=== PATIENT | male | born 1975 | race Caucasian/White ===

== ENCOUNTER 2017-01-09 16:34 | Observation (INO) | payer BC ==
[2017-01-09] MEDS ORDERED: Aspirin 81 MG Tab.Chew PO ONE (16:56)
--- NOTE | 2017-01-09 17:09 | EDM.PDOC ---
<Ranulfo Aquino Z - Last Filed: 01/09/17 18:33> ED HPI GENERAL MEDICAL PROBLEM - General Chief Complaint: Chest Pain Stated Complaint: CHEST PAIN Time Seen by Provider: 01/09/17 16:44 Source of Information: Reports: Patient History Limitations: Reports: No Limitations - History of Present Illness INITIAL COMMENTS - FREE TEXT/NARRATIVE: HISTORY AND PHYSICAL: History of present illness: Nicolas is a 41-year-old male with a past medical history of hypertension, he does not have any past ischemic cardiac history, elevated cholesterol history, diabetes history. He does not have any family history of myocardial infarction or blocked arteries. He is a half pack-a-day smoker. Patient came in today to his primary care physician's office for assessment of chest pain. Patient states that his chest pain started between 5 days ago. He states it has not changed in nature, he has a very strenuous job which is not causing his pain to worsen. Patient denies pain is reproducible, or worse with exertion. Patient does not have any nausea, vomiting, diaphoresis, heart palpitations. Review of systems: As per history of present illness and below otherwise all systems reviewed and negative. Past medical history: As per history of present illness and as reviewed below otherwise noncontributory. Surgical history: As per history of present illness and as reviewed below otherwise noncontributory. Social history: No reported history of drug or alcohol abuse. Family history: As per history of present illness and as reviewed below otherwise noncontributory. Physical exam: HEENT: Atraumatic, normocephalic, pupils reactive, negative for conjunctival pallor or scleral icterus, mucous membranes moist, throat clear, neck supple, nontender, trachea midline. Lungs: Clear to auscultation, breath sounds equal bilaterally, chest nontender. Heart: S1S2, regular, negative for clicks, rubs, or JVD. Abdomen: Soft, nondistended, nontender. Negative for masses or hepatosplenomegaly. Negative for costovertebral tenderness. Pelvis: Stable nontender. Genitourinary: Deferred. Rectal: Deferred. Extremities: Atraumatic, negative for cords or calf pain. Neurovascular unremarkable. Neuro: Awake, alert, oriented. Cranial nerves II through XII unremarkable. Motor and sensory unremarkable throughout. Exam nonfocal. Diagnostics: ECG, chest x-ray, CBC, troponin, D-Dimer [employer]: Aspirin 324 mg 1 time dose Impression: 41-year-old male with past medical history of hypertension presenting with 5 day history of chest pain with non-specific T wave changes on initial EKG. Patient has a HEART score of 2, normal initial troponin, 0C within normal limits, his repeat EKG in the emergency department showed a NSR of 69, normal [place], no STEMI Plan: Due to the fact that the patient has had chest pain for the past 5 days, nonspecific T-wave changes on initial EKG done at PCPs office, and consultation with cardiology the decision was made to admit the patient under observation with telemetry for further workup and assessment. Definitive disposition and diagnosis as appropriate pending reevaluation and review of above. Midsternal Chest Pain Pain Score (Numeric/FACES): 4 - Related Data Allergies Allergy/AdvReac Type Severity Reaction Status Date / Time No Known Allergies Allergy Verified 01/09/17 16:43 Home Meds: Home Meds Aspirin [[place] Aspirin] 81 mg PO DAILY 01/09/17 [History] Lisinopril 10 mg PO DAILY 01/09/17 [History] Past Medical History HEENT History: Reports: None Cardiovascular History: Reports: Hypertension Respiratory History: Reports: None Gastrointestinal History: Reports: None Genitourinary History: Reports: None Musculoskeletal History: Reports: None Neurological History: Reports: None Psychiatric History: Reports: None Endocrine/Metabolic History: Reports: None Hematologic History: Reports: None Immunologic History: Reports: None Oncologic (Cancer) History: Reports: None Dermatologic History: Reports: None - Infectious Disease History Infectious Disease History: Reports: None - Past Surgical History Head Surgeries/Procedures: Reports: None HEENT Surgical History: Reports: None Cardiovascular Surgical History: Reports: None Respiratory Surgical History: Reports: None GI Surgical History: Reports: None Male Surgical History: Reports: None Endocrine Surgical History: Reports: None Musculoskeletal Surgical History: Reports: None Dermatological Surgical History: Reports: None Social & Family History - Family History Family Medical History: Noncontributory - Tobacco Use Smoking Status *Q: Current Every Day Smoker Years of Tobacco use: 10 Packs/Tins Daily: 0.5 - Caffeine Use Caffeine Use: Reports: None - Recreational Drug Use Recreational Drug Use: No ED ROS GENERAL - Review of Systems Review Of Systems: ROS reveals no pertinent complaints other than HPI. ED EXAM, GENERAL - Physical Exam Exam: See Below (Refer to history of presenting illness) Course - Vital Signs Last Recorded V/S: Last Vital Signs Temp 36.6 C 01/09/17 16:39 Pulse 66 01/09/17 17:45 Resp 16 01/09/17 17:45 BP 133/89 01/09/17 17:45 Pulse Ox 97 01/09/17 17:45 - Orders/Labs/Meds Orders: Active Orders 24 hr Category Date Time Status Patient Status [ADT] Routine ADT 01/09/17 18:23 Active Cardiac Monitoring [RC] CONTINUOUS Care 01/09/17 18:25 Active EKG 12 Lead [EKG Documentation Completion] [RC] STAT Care 01/09/17 17:24 Active Height and Weight [RC] UPON Care 01/09/17 18:23 Active Intake and Output [RC] QSHIFT Care 01/09/17 18:25 Active Notify Provider Consults [RC] ASDIRECTED Care 01/09/17 18:31 Active Oxygen Therapy [RC] PRN Care 01/09/17 18:23 Active Pulse Oximetry [RC] PRN Care 01/09/17 18:25 Active Up With Assistance [RC] ASDIRECTED Care 01/09/17 18:23 Active VTE/DVT Education [RC] PER UNIT ROUTINE Care 01/09/17 18:23 Active Vital Signs [RC] Q4H Care 01/09/17 18:23 Active Consult to Physician [CONS] Routine Cons 01/09/17 18:23 Active Regular Diet [DIET] Diet 01/09/17 Breakfast Active Chest 1V Frontal [CR] Stat Exams 01/09/17 16:38 Taken Enoxaparin [Lovenox] Med 01/09/17 18:30 Active 40 mg SUBCUT DAILY Nicotine [Habitrol] Med 01/09/17 18:30 Active 7 mg TRDERM DAILY Sodium Chloride 0.9% [Saline Flush] Med 01/09/17 18:23 Active 10 ml FLUSH ASDIRECTED PRN Sodium Chloride 0.9% [Saline Flush] Med 01/09/17 18:23 Active 2.5 ml FLUSH ASDIRECTED PRN Peripheral IV Insertion Adult [OM.PC] Routine Oth 01/09/17 18:23 Ordered Saline Lock Insert [OM.PC] Routine Oth 01/09/17 18:23 Ordered Resuscitation Status Routine Resus Stat 01/09/17 18:23 Ordered Medication Orders Enoxaparin Sodium (Lovenox) 40 mg SUBCUT DAILY [place] Nicotine (Habitrol) 7 mg TRDERM DAILY [place] Sodium Chloride (Saline Flush) 10 ml FLUSH ASDIRECTED PRN PRN Reason: Keep Vein Open Sodium Chloride (Saline Flush) 2.5 ml FLUSH ASDIRECTED PRN PRN Reason: Keep Vein Open Labs: Laboratory Tests 01/09/17 01/09/17 01/09/17 Range/Units 16:48 16:48 16:48 WBC 8.26 (4.0-11.0) K/uL RBC 4.38 L (4.50-5.90) M/uL Hgb 13.9 (13.0-17.0) g/dL Hct 41.4 (38.0-50.0) % MCV 94.5 (80.0-98.0) fL MCH 31.7 (27.0-32.0) pg MCHC 33.6 (31.0-37.0) g/dL RDW Std Deviation 44.5 (28.0-62.0) fl RDW Coeff of Kye 13 (11.0-15.0) % Plt Count 223 (150-400) K/uL MPV 9.40 (7.40-12.00) fL Neut % (Auto) 60.6 (48.0-80.0) % Lymph % (Auto) 29.5 (16.0-40.0) % Cole % (Auto) 8.6 (0.0-15.0) % Eos % (Auto) 1.1 (0.0-7.0) % Baso % (Auto) 0.2 (0.0-1.5) % Neut # (Auto) 5.0 (1.4-5.7) K/uL Lymph # (Auto) 2.4 (0.6-2.4) K/uL Cole # (Auto) 0.7 (0.0-0.8) K/uL Eos # (Auto) 0.1 (0.0-0.7) K/uL Baso # (Auto) 0.0 (0.0-0.1) K/uL Nucleated RBC % 0.0 /100WBC Nucleated RBCs # 0 K/uL D-Dimer, Quantitative (0.0-0.52) mg/LFEU Sodium 138 (136-146) mmol/L Potassium 4.1 (3.5-5.1) mmol/L Chloride 107 (98-110) mmol/L Carbon Dioxide 22 (21-31) mmol/L BUN 15 (6.0-23.0) mg/dL Creatinine 1.0 (0.6-1.5) mg/dL Est Cr Clr Drug Dosing 107.10 mL/min Estimated GFR (MDRD) > 60.0 ml/min Glucose 96 (60-110) mg/dL Calcium 9.5 (8.8-10.8) mg/dL Total Bilirubin 0.8 (0.1-1.5) mg/dL AST 24 (5-40) IU/L ALT 23 (8-54) IU/L Alkaline Phosphatase 72 (40-150) Troponin I < 0.10 (0.0-0.29) NG/ML Total Protein 7.2 (6.0-8.0) g/dL Albumin 4.3 (3.5-5.0) g/dL Globulin 2.9 (2.0-3.5) g/dL Albumin/Globulin Ratio 1.5 (1.3-2.8) 01/09/17 Range/Units 16:48 WBC (4.0-11.0) K/uL RBC (4.50-5.90) M/uL Hgb (13.0-17.0) g/dL Hct (38.0-50.0) % MCV (80.0-98.0) fL MCH (27.0-32.0) pg MCHC (31.0-37.0) g/dL RDW Std Deviation (28.0-62.0) fl RDW Coeff of Kye (11.0-15.0) % Plt Count (150-400) K/uL MPV (7.40-12.00) fL Neut % (Auto) (48.0-80.0) % Lymph % (Auto) (16.0-40.0) % Cole % (Auto) (0.0-15.0) % Eos % (Auto) (0.0-7.0) % Baso % (Auto) (0.0-1.5) % Neut # (Auto) (1.4-5.7) K/uL Lymph # (Auto) (0.6-2.4) K/uL Cole # (Auto) (0.0-0.8) K/uL Eos # (Auto) (0.0-0.7) K/uL Baso # (Auto) (0.0-0.1) K/uL Nucleated RBC % /100WBC Nucleated RBCs # K/uL D-Dimer, Quantitative < 0.19 (0.0-0.52) mg/LFEU Sodium (136-146) mmol/L Potassium (3.5-5.1) mmol/L Chloride (98-110) mmol/L Carbon Dioxide (21-31) mmol/L BUN (6.0-23.0) mg/dL Creatinine (0.6-1.5) mg/dL Est Cr Clr Drug Dosing mL/min Estimated GFR (MDRD) ml/min Glucose (60-110) mg/dL Calcium (8.8-10.8) mg/dL Total Bilirubin (0.1-1.5) mg/dL AST (5-40) IU/L ALT (8-54) IU/L Alkaline Phosphatase (40-150) Troponin I (0.0-0.29) NG/ML Total Protein (6.0-8.0) g/dL Albumin (3.5-5.0) g/dL Globulin (2.0-3.5) g/dL Albumin/Globulin Ratio (1.3-2.8) Meds: Medications Generic Name Dose Route Start Last Admin Trade Name Freq PRN Reason Stop Dose Admin Enoxaparin Sodium 40 mg 01/09/17 18:30 Lovenox SUBCUT DAILY [place] Nicotine 7 mg 01/09/17 18:30 Habitrol TRDERM DAILY [place] Sodium Chloride 10 ml 01/09/17 18:23 Saline Flush FLUSH ASDIRECTED PRN Keep Vein Open Sodium Chloride 2.5 ml 01/09/17 18:23 Saline Flush FLUSH ASDIRECTED PRN Keep Vein Open Discontinued Medications Generic Name Dose Route Start Last Admin Trade Name Freq PRN Reason Stop Dose Admin Aspirin 324 mg 01/09/17 16:56 01/09/17 17:39 Aspirin PO 01/09/17 16:57 324 mg ONETIME ONE Administration Departure - Departure Time of Disposition: 18:30 Disposition: Refer to Observation Condition: Good Clinical Impression: Chest pain <Richy Huffman - Last Filed: 01/09/17 18:47> ED HPI GENERAL MEDICAL PROBLEM - History of Present Illness INITIAL COMMENTS - FREE TEXT/NARRATIVE: FELIBERTO Tse attending no by Dr. Richy Huffman 41-year-old male with a history of tobacco and hypertension no prior cardiac workup now with nonspecific chest pain. T-wave abnormality on EKG initially resolved on repeat study. Case discussed with beef selector Dr. Almonte is aware history and findings and agrees with observation admission to hospitalist service and he will provide consultation. She is stable on multiple reevaluation. Aspirin given EKG with normal sinus rhythm at 69 normal axis no STEMI interpreted by me Chest x-ray with no acute disease interpreted by me
[2017-01-09 17:13] LABS: CHLORIDE,CL 107 mmol/L (98-110); SODIUM,NA 138 mmol/L (136-146)
[2017-01-09] MEDS ORDERED: Sodium Chloride 0.9% 2.5 ML Syringe FLUSH PRN (18:23)
[2017-01-09] MEDS ORDERED: Sodium Chloride 0.9% 10 ML Syringe FLUSH PRN (18:23)
[2017-01-09] MEDS ORDERED: Nicotine 7 MG/24 Hr Patch TRDERM SCH (18:30)
[2017-01-09] MEDS: Enoxaparin 40 MG/0.4 ML Syringe SUBCUT SCH (18:46)
[2017-01-09] MEDS: Lisinopril 10 MG Tab PO SCH (21:58)
[2017-01-10] MEDS ORDERED: Morphine 2 MG/ML Syringe IVPUSH PRN (03:06)
[2017-01-10] MEDS ORDERED: Ondansetron 4 MG/2 ML SDV IVPUSH PRN (03:06)
--- NOTE | 2017-01-10 08:26 | PCM.HP ---
H&P History of Present Illness - General Date of Service: 01/10/17 Admit Problem/Dx: Chest pain Source of Information: Patient History Limitations: Reports: No Limitations - History of Present Illness Initial Comments - Free Text/Narative: This 41 year old male with pmh of smoker and HTN presented initially to the clinic with complaints of 5 days of dull chest pain and L shoulder pain. He reports it started abruptly 5 or so days ago and has just stayed there. He became worried so he wanted to be evaluated. He denies SOB or diaphoresis with this pain. Nothing has really helped it or made it worse. He denies palpitations. he works on a work over [employer], so his job is very physically demanding. Denies trauma to shoulder or chest that he can remember. Denies heartburn or GERD like symptoms. He denies cough or sinus congestion. He does smoke 1 ppd. He denies the pain is reproducible with movement of shoulder. He is feeling better this morning. He did mention he recently went through a rough breakup and has felt this pain since around that time frame. dnie sfeeling anxious, but is emotionally upset regarding this breakup. he has no known family history of CAD and no DM for personal history or family. In the ED labwork negative. Troponin negative. 2nd EKG SR with no ST segment changes. CXR negative for acute cardiopulmonary disease. He was given ASA and Lisinopril. He was admitted with chest pain R/O ACS. PCP Dr. Aquino. Midsternal Chest Pain Pain Score (Numeric/FACES): 4 - Related Data Allergies/Adverse Reactions: Allergies Allergy/AdvReac Type Severity Reaction Status Date / Time No Known Allergies Allergy Verified 01/09/17 16:43 Home Medications: Home Meds Aspirin [[place] Aspirin] 81 mg PO DAILY 01/09/17 [History] Lisinopril 10 mg PO DAILY 01/09/17 [History] Past Medical History HEENT History: Reports: None Cardiovascular History: Reports: Hypertension. Denies: Blood Clots/VTE/DVT, CAD , NM, Stents Respiratory History: Reports: None. Denies: COPD, PE Gastrointestinal History: Reports: None. Denies: GERD Genitourinary History: Reports: None. Denies: Chronic Renal Insuffiency Musculoskeletal History: Reports: None Neurological History: Reports: None Psychiatric History: Reports: None Endocrine/Metabolic History: Reports: None. Denies: Diabetes, Type II, Hypothyroidism Hematologic History: Reports: None Immunologic History: Reports: None Oncologic (Cancer) History: Reports: None Dermatologic History: Reports: None - Infectious Disease History Infectious Disease History: Reports: None - Past Surgical History Head Surgeries/Procedures: Reports: None HEENT Surgical History: Reports: None Cardiovascular Surgical History: Reports: None Respiratory Surgical History: Reports: None GI Surgical History: Reports: None Male Surgical History: Reports: None Endocrine Surgical History: Reports: None Musculoskeletal Surgical History: Reports: None Dermatological Surgical History: Reports: None Social & Family History - Family History Family Medical History: Noncontributory - Tobacco Use Smoking Status *Q: Current Every Day Smoker Years of Tobacco use: 10 Packs/Tins Daily: 0.5 Used Tobacco, but Quit: No Second Hand Smoke Exposure: No - Caffeine Use Caffeine Use: Reports: None - Alcohol Use Alcohol Use History: No - Recreational Drug Use Recreational Drug Use: No - Living Situation & Occupation Living situation: Reports: Single Occupation: Employed H&P Review of Systems - Review of Systems: Review Of Systems: See Below General: Reports: No Symptoms. Denies: Fever, Weakness, Fatigue HEENT: Reports: No Symptoms. Denies: Ear Pain, Headaches, Sinus Congestion, Vertigo, Visual Changes Pulmonary: Reports: No Symptoms. Denies: Shortness of Breath Cardiovascular: Reports: Chest Pain (was dull in nature and went to top of shoulder, gone this morning.). Denies: Palpitations, Edema, Lightheadedness Gastrointestinal: Reports: No Symptoms. Denies: Abdominal Pain, Black Stool, Bloody Stool, Nausea, Vomiting Genitourinary: Reports: No Symptoms. Denies: Dysuria, Frequency, Burning Musculoskeletal: Reports: No Symptoms. Denies: Neck Pain Skin: Reports: No Symptoms Psychiatric: Reports: No Symptoms Neurological: Reports: No Symptoms Hematologic/Lymphatic: Reports: No Symptoms Immunologic: Reports: No Symptoms Exam - Exam Exam: See Below - Vital Signs Vital Signs: Last Vital Signs Temp 96.7 F 01/10/17 08:00 Pulse 68 01/10/17 08:00 Resp 20 01/10/17 08:00 BP 114/70 01/10/17 08:00 Pulse Ox 94 L 01/10/17 08:00 Weight: 91.2 kg - Exam General: Alert, Oriented, Cooperative HEENT: Conjunctiva Clear, Mucosa Moist & [place], Nares Patent, Posterior Pharynx Clear Lungs: Normal Respiratory Effort, Wheezing (scant wheezing, cleared with cough. Encouraged him to stop smoking) Cardiovascular: Regular Rate, Regular Rhythm, Normal S1, Normal S2. No: Systolic Murmur Extremities: Normal Inspection, Normal Range of Motion, Non-Tender, No Pedal Edema, Normal Capillary Refill Neuro Extensive - Mental Status: Alert, Oriented x3, Normal Mood/Affect, Normal Cognition Psychiatric: Alert, Normal Affect, Normal Mood - Patient Data Lab Results Last 24 hrs: Laboratory Results - last 24 hr 01/09/17 01/10/17 Range/Units 22:45 04:47 Troponin I < 0.10 < 0.10 (0.0-0.29) NG/ML Result Diagrams: 01/09/17 16:48 01/09/17 16:48 *Q Meaningful Use (ADM) - VTE *Q VTE Criteria *Q: - Stroke *Q Stroke Criteria *Q: - AMI *Q AMI Criteria *Q: - Problem List (1) Chest pain SNOMED Code(s): 12216272 ICD Code: R07.9 - CHEST PAIN, UNSPECIFIED Status: Acute Current Visit: Yes (2) HTN (hypertension) SNOMED Code(s): 56683768 ICD Code: I10 - ESSENTIAL (PRIMARY) HYPERTENSION Status: Chronic Current Visit: Yes Qualifiers: Hypertension type: essential hypertension Qualified Code(s): I10 - Essential (primary) hypertension (3) Smoker SNOMED Code(s): 34119879 ICD Code: F17.200 - NICOTINE DEPENDENCE, UNSPECIFIED, UNCOMPLICATED Status : Chronic Current Visit: Yes Problem List Initiated/Reviewed/Updated: Yes Orders Last 24hrs: Active Orders 24 hr Category Date Time Status Telemetry Monitoring [Cardiac Monitoring] [RC] . Care 01/09/17 20:29 Active DIRECTED Heart Healthy Diet [DIET] Diet 01/10/17 Breakfast Active LIPID PANEL [CHEM] Routine Lab 01/10/17 08:19 Ordered TROPONIN I [CHEM] Q6H Lab 01/10/17 10:45 Ordered Aspirin Med 01/10/17 09:00 Active 81 mg PO DAILY Lisinopril [Prinivil] Med 01/09/17 21:15 Active 10 mg PO DAILY Morphine Med 01/10/17 03:06 Active 2 mg IVPUSH Q3H PRN Ondansetron [Zofran] Med 01/10/17 03:06 Active 4 mg IVPUSH Q4H PRN Medication Orders Aspirin (Aspirin) 81 mg PO DAILY [facility] Enoxaparin Sodium (Lovenox) 40 mg SUBCUT DAILY [facility] Last Admin: 01/09/17 18:46 Dose: 40 mg Lisinopril (Prinivil) 10 mg PO DAILY [facility] Last Admin: 01/09/17 21:58 Dose: 10 mg Morphine Sulfate (Morphine) 2 mg IVPUSH Q3H PRN PRN Reason: Chest Pain Ondansetron HCl (Zofran) 4 mg IVPUSH Q4H PRN PRN Reason: Nausea/Vomiting Sodium Chloride (Saline Flush) 10 ml FLUSH ASDIRECTED PRN PRN Reason: Keep Vein Open Last Admin: 01/09/17 18:47 Dose: 10 ml Sodium Chloride (Saline Flush) 2.5 ml FLUSH ASDIRECTED PRN PRN Reason: Keep Vein Open Last Admin: 01/09/17 18:47 Dose: 2.5 ml Assessment/Plan Comment:: DISCHARGE PLAN: Discharge Diagnoses Chest pain-resolved HTN Smoker Nicolas was admitted and monitored on telemetry overnight for chest pain. Troponins negative and EKG remained SR without ST segment changes. Chest pain is now gone. ACS has been ruled out. Dr Lange was consulted in ED. Will arrange outpatient stress test and follow up with PCP in 1 week. He was encouraged to stop smoking and continue being complaint with BP medications. Chest pain maybe cardiac related vs musculoskeletal VS emotional stress. He is to remain light work until after stress test is completed. He is to return to ED or clinic if concerns should arise.
[2017-01-10] MEDS: Enoxaparin 40 MG/0.4 ML Syringe SUBCUT SCH (08:47)
[2017-01-10] MEDS: Lisinopril 10 MG Tab PO SCH (08:54)
[2017-01-10] MEDS ORDERED: Aspirin 81 MG Tab.Chew PO SCH (09:00)
--- NOTE | 2017-01-10 10:01 | CR ---
EXAM DATE: 01/09/17 PATIENT'S AGE: 41 Patient: BRISEYDA SUNG Facility: [place], [place] Site . Site : [id number] Study: XRay Chest [id number]/[id number] 5:18:03 PM Ordering Physician: Doctor Giron Final Report: HISTORY: Chest pain. FINDINGS: AP portable chest radiograph demonstrates a normal cardiac silhouette. Pulmonary vasculature and edgar are normal. No consolidation or pleural effusion is seen. IMPRESSION: No acute cardiopulmonary disease. Dictated by Earline Parada MD @ 01/09/2017 5:42:52 PM Dictated by: Earline Parada MD @ 01/09/2017 17:43:01 (Electronic Signature) Report Signed by Proxy. JANICE
[2017-01-10 12:01] VITALS: BP 108/71
--- NOTE | 2017-01-10 17:01 | CONS ---
DATE OF CONSULTATION: DATE OF : 1975 PRIMARY CARE PHYSICIAN: None PCP REASON FOR CONSULTATION: Chest pain. HISTORY OF PRESENT ILLNESS: This is a 41-year-old male with history of hypertension, presented to the hospital from the clinic because of the chest pain. Initial blood pressure when he was got in, it was 115/77, and the reason he made a scheduled to see his primary care because he ran out of the medication as well as he started having headache as well. When he was asked about the chest pain, he stated that he has had been having a chest pain. It was dull aching, probably 5-10 on pain scale and it is constant. Pain never got away for 5 days and it was radiating to his left arm. It does not really related to any physical activities. He works in the [employer] field at [employer] and when he does his job, it does not really affect his chest pain and does not really go away, and denies any chest trauma. He also denies shortness of breath as well as palpitation, feeling dizzy, and then he come into the emergency room. Initial EKG, there are some ST abnormalities in V1 to V3. An initial troponin was negative; however, with a history of smoking as well as hypertension, I was called and I recommended to keep him for observation and repeat a troponin, and when I saw him today, he still has some chest pain; however, troponin has been negative for x3, and his vital signs seemed to be stable. He is on lisinopril for his blood pressure control right now. PAST MEDICAL HISTORY: Including hypertension. ALLERGIES: He has no known drug allergies. FAMILY HISTORY: He denied family history of CAD. REVIEW OF SYSTEMS: Negative except as indicated in HPI. PHYSICAL EXAMINATION: VITAL SIGNS: Initial blood pressure 150/77, currently 121/52; heart rate of 53 to 71; temperature 36.3; O2 saturation 96% on room air. HEENT: Not pallor. No jaundice. No JVD. HEART: Normal S1, S2. No murmur. LUNGS: Clear. ABDOMEN: Soft, nontender. Bowel sounds are present. No hepatosplenomegaly. EXTREMITIES: Legs, no edema. LABORATORY INVESTIGATIONS: EKG on January 09, 2017, shows sinus rhythm and with the LVH, heart rate of 69, NM interval 203, QRS duration 98, QTc interval 407. Echocardiogram still pending. MEDICATIONS: Including lisinopril 10 mg once a day. SOCIAL HISTORY: He is smoking, occasional drinking. No drugs. ASSESSMENT AND PLAN: This is a 41-year-old male with history of smoking, hypertension, presented hospital with atypical chest pain. His chest pain does not sound typical for cardiac angina. He has been ruled out for ACS. No EKG changes. I would recommend to do echocardiogram to check for any LV systolic dysfunction as well as regional wall motion abnormalities. His D-dimer was negative. I would recommend to do the stress test exercise testing as an outpatient. Also A1c and lipid panel are still pending. ESTELLE / PALOMO /[id number]
--- NOTE | 2017-01-16 17:07 | ECHO ---
EXAM DATE: 01/09/17 PATIENT'S AGE: 41 The echocardiogram report can be seen in this patient's EMR (Electronic Medical Record) in the Reports section. The report has also been scanned into PACs. JANICE
== END 2017-01-10 12:20 | disposition home or self-care (01) ==
LOC: MW.ED 16:34 → MW.MS 19:31
PROVIDERS: ADMIT Internal Medicine; ATTEND Internal Medicine
DX: R07.89 Other chest pain (principal); I10 Essential (primary) hypertension; F17.210 Nicotine dependence, cigarettes, uncomplicated; Z79.82 Long term (current) use of aspirin; Z79.899 Other long term (current) drug therapy
CPT/HCPCS: 36415; 71010; 80053; 80061; 83036; 84484; 85025; 85379; 93005; 93306; 96372; 99285; A9270; G0378; J1650; 99283